=== PATIENT | female | born 1995 | race African-American/Black ===

== ENCOUNTER 2021-10-10 08:08 | Outpatient (CLI) | payer BC, MEDICAID ==
[~2021-10-10] VITALS: Ht 160 cm; Wt 110.2 kg
[~2021-10-10 08:08] MED LIST: ACHD5005 PO; AMOX500C2 PO; AMOX500T2 PO; CEPH-507 PO; CLIN300C3 PO; IBUP-1773 PO; NAPR-915 PO; PREN-148 PO; flexeril PO
[2021-10-10 09:00] VITALS: BP 116/66
[2021-10-10] MEDS ORDERED: ACETAMINOPHEN 500 MG TAB (TYLENOL) PO ONE (09:00)
[2021-10-10] MEDS ORDERED: CYCLOBENZAPRINE 10 MG (FLEXERIL) TAB PO ONE (09:00)
[2021-10-10 09:57] LABS: BILIRUBIN,URINE NEGATIVE (NEGATIVE); CLARITY,URINE CLEAR; COLOR,URINE YELLOW; GLUCOSE, URINE (UA) NEGATIVE (NEGATIVE); KETONES,URINE NEGATIVE (NEGATIVE); LEUKOCYTE ESTERASE ,URINE NEGATIVE (NEGATIVE); NITRITE,URINE NEGATIVE (NEGATIVE); PROTEIN,URINE NEGATIVE (NEGATIVE)
[2021-10-10 10:09] LABS: BACTERIA,URINE MODERATE /HPF; URINE OTHER FEW SPERM /HPF; WBC,URINE 0-2 /HPF; YEAST,URINE MODERATE /HPF
[2021-10-10] MEDS ORDERED: fluCOnazole (DIFLUCAN) 100 MG TAB PO ONE (10:30)
--- NOTE | 2021-10-11 08:28 | Physician Query-Final Dx ---
Clinic Account Progress/Dx Physician Query: Please give diagnosis Please include # weeks gestation Date of Service Oct 10, 2021 at 08:08 WILLIS,OctOct 11, 2021 08:28
== END 2021-10-10 10:57 | disposition home or self-care (01) ==
LOC: WSo 08:08 → LDRP 08:11 → WSo 10:57
PROVIDERS: ATTEND Obstetrics & Gynecology
DX: O26.899 Other specified pregnancy related conditions, unspecified trimester (principal); R25.2 Cramp and spasm; Z3A.00 Weeks of gestation of pregnancy not specified
CPT/HCPCS: 81000; 87088; 87210; 99214

== ENCOUNTER 2021-11-13 21:35 | Outpatient (CLI) | payer MEDICAID ==
[~2021-11-13] VITALS: Ht 160 cm; Wt 116.9 kg
[2021-11-13 21:56] VITALS: BP 123/64
[2021-11-13 22:02] VITALS: BP 123/65
--- NOTE | 2021-11-15 08:09 | Physician Query-Final Dx ---
WILLIS,11/15/21 0809: Clinic Account Progress/Dx Physician Query: Please give diagnosis Please include # weeks gestation Date of Service Nov 13, 2021 at 21:35 ARTHUR RM DO 11/15/21 1611: Clinic Account Progress/Dx DIAGNOSIS: Diagnosis 28 week gestation cramping WILLIS,OctNov 15, 2021 08:09 ARTHUR RM DO Nov 15, 2021 16:11
== END 2021-11-13 22:55 ==
LOC: LDRP 21:35 → WSo 21:35
PROVIDERS: ATTEND Obstetrics & Gynecology
DX: O26.893 Other specified pregnancy related conditions, third trimester (principal); Z3A.28 28 weeks gestation of pregnancy
CPT/HCPCS: 99213

== ENCOUNTER 2022-08-10 18:16 | Emergency (ER) | payer MEDICAID ==
[~2022-08-10] VITALS: Ht 160 cm; Wt 106.0 kg
[2022-08-10] MEDS ORDERED: LIDOCAINE 2% VISCOUS 15 ML UDC PO ONE (19:00)
[2022-08-10] MEDS ORDERED: FAMOTIDINE 20 MG (PEPCID) TABLET PO ONE (19:00)
[2022-08-10] MEDS ORDERED: LACTATED RINGERS 1,000 ML IV ONE (19:00)
[2022-08-10] MEDS ORDERED: PROMETHAZINE INJ 25 MG/ML (PHENERGAN) AMP IVP ONE (19:00)
[2022-08-10] MEDS ORDERED: ANTACID SUSP 30 ML UDC (MYLANTA) PO ONE (19:00)
[2022-08-10 19:36] LABS: BASOPHILS % (AUTO) 0 % (0-10); EOSINOPHILS # (AUTO) 0.2 10^3/uL (0.0-0.3); EOSINOPHILS % (AUTO) 2 % (0-10); HEMATOCRIT 36 % (35-52); HEMOGLOBIN 11.9 g/dL (11.5-16.0); LYMPHOCYTES # (AUTO) 1.6 10^3/uL (1.0-4.0); LYMPHOCYTES % (AUTO) 21 % (12-44); MEAN CORPUSCULAR HEMOGLOBIN 25 pg (25-34); MEAN CORPUSCULAR HGB CONC 33 g/dL (32-36); MEAN CORPUSCULAR VOLUME 75 fL (80-99); MEAN PLATELET VOLUME 10.5 fL (9.0-12.2); MONOCYTES # (AUTO) 0.6 10^3/uL (0.0-1.0); MONOCYTES % (AUTO) 8 % (0-12); NEUTROPHILS # (AUTO) 5.1 10^3/uL (1.8-7.8); NEUTROPHILS % (AUTO) 69 % (42-75); PLATELET COUNT 297 10^3/uL (130-400); WHITE BLOOD COUNT 7.4 10^3/uL (4.3-11.0)
[2022-08-10 19:48] LABS: ALBUMIN 3.8 GM/DL (3.2-4.5); POTASSIUM 3.6 MMOL/L (3.6-5.0)
[2022-08-10 19:50] LABS: TOTAL PROTEIN 6.9 GM/DL (6.4-8.2)
[2022-08-10 19:52] LABS: BILIRUBIN,TOTAL 0.3 MG/DL (0.1-1.0)
[2022-08-10 19:54] LABS: CREATININE SERUM 0.77 MG/DL (0.60-1.30)
[2022-08-10] MEDS ORDERED: PROM25TA14 PO (20:25)
[2022-08-10] MEDS ORDERED: FAMO-119 PO (20:25)
--- NOTE | 2022-08-10 20:25 | ED General ---
General Chief Complaint: Chest Pain Stated Complaint: CHEST PAIN, BACK PAIN, Nursing Triage Note: pt ambulatory to room. 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 states the pain feels like she fell on her back but she denies injury. 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 states she is 10 weeks , denies any vag bleeding. states she has not taken any tylenol or other meds for pain. Source of Information: Patient Exam Limitations: No Limitations History of Present Illness Date Seen by Provider: Aug 10, 2022 Time Seen by Provider: 18:21 Allergies and Home Medications Allergies Coded Allergies: No Known Drug Allergies (Unverified , 08/14/15) Patient Home Medication List Home Medication List Reviewed: Yes Famotidine (Pepcid) 20 Mg Tablet, 20 MG PO BID Prescribed by: SERINA VELAZQUEZ on 08/10/222024 Vit #76/Iron,Carb/FA (Pnv 29-1 Tablet) 1 Each Tablet, 1 EACH PO, (Reported) Entered as Reported by: AWILDA WILEY on 04/23/16 175 Promethazine HCl (Promethazine Tablet) 25 Mg Tablet, 25 MG PO Q8H PRN for NAUSEA/VOMITING Prescribed by: SERINA VELAZQUEZ on 08/10/222024 Past Rstpbye-Ygwstt-Npskhd Hx Patient Social History Tobacco Use?: No Use of E-Cig and/or Vaping dev: No Substance use?: No Alcohol Use?: No Immunizations Up To Date Influenza Vaccine Up-to-Date: No; Not Current Seasonal Allergies Seasonal Allergies: No Past Medical History Irregular Heartbeat Headaches /Migraines Last Menstrual Period: May 18, 2022 Reproductive Disorders: No Adverse Reaction/Blood Tranf: No Family Medical History Patient reports no known family medical history. No Pertinent Family Hx Physical Exam Vital Signs Vital Signs - First Documented 08/10/22 18:33 Temp 37.0 Pulse 108 Resp 24 B/P (MAP) 142/74 (96) Pulse Ox 100 Capillary Refill : Height, Weight, BMI Height: 5'4.00" Weight: 211lbs. 6.0oz. 95.883022db; 41.00 BMI Method:Stated General Appearance: No Apparent Distress, WD/WN, Obese Cardiovascular: Other (Anterior chest wall tenderness) Gastrointestinal: Normal Bowel Sounds, Soft; No Distended; Tenderness (Across the upper abdomen and most prominent in the epigastrium) Progress/Results/Core Measures Suspected Sepsis SIRS Temperature: Pulse: 108 Respiratory Rate: 24 Laboratory Tests 08/10/22 19:20: White Blood Count 7.4 Blood Pressure 142 /74 Mean: 96 Laboratory Tests 08/10/22 19:20: Creatinine 0.77, Platelet Count 297, Total Bilirubin 0.3 Results/Orders Lab Results Laboratory Tests Test 08/10/22 18:39 08/10/22 19:20 Range/Units Influenza Type A (RT-PCR) Not Detected Not Detecte Influenza Type B (RT-PCR) Not Detected Not Detecte SARS-CoV-2 RNA (RT-PCR) Not Detected Not Detecte White Blood Count 7.4 4.3-11.0 10^3/uL Red Blood Count 4.80 3.80-5.11 10^6/uL Hemoglobin 11.9 11.5-16.0 g/dL Hematocrit 36 35-52 % Mean Corpuscular Volume 75 L 80-99 fL Mean Corpuscular Hemoglobin 25 25-34 pg Mean Corpuscular Hemoglobin Concent 33 32-36 g/dL Red Cell Distribution Width 16.2 H 10.0-14.5 % Platelet Count 297 130-400 10^3/uL Mean Platelet Volume 10.5 9.0-12.2 fL Immature Granulocyte % (Auto) 0 % Neutrophils (%) (Auto) 69 42-75 % Lymphocytes (%) (Auto) 21 12-44 % Monocytes (%) (Auto) 8 0-12 % Eosinophils (%) (Auto) 2 0-10 % Basophils (%) (Auto) 0 0-10 % Neutrophils # (Auto) 5.1 1.8-7.8 10^3/uL Lymphocytes # (Auto) 1.6 1.0-4.0 10^3/uL Monocytes # (Auto) 0.6 0.0-1.0 10^3/uL Eosinophils # (Auto) 0.2 0.0-0.3 10^3/uL Basophils # (Auto) 0.0 0.0-0.1 10^3/uL Immature Granulocyte # (Auto) 0.0 0.0-0.1 10^3/uL Sodium Level 136 135-145 MMOL/L Potassium Level 3.6 3.6-5.0 MMOL/L Chloride Level 109 H 98-107 MMOL/L Carbon Dioxide Level 19 L 21-32 MMOL/L Anion Gap 8 5-14 MMOL/L Blood Urea Nitrogen 9 7-18 MG/DL Creatinine 0.77 0.60-1.30 MG/DL Estimat Glomerular Filtration Rate 110 BUN/Creatinine Ratio 12 Glucose Level 97 70-105 MG/DL Calcium Level 9.0 8.5-10.1 MG/DL Corrected Calcium 9.2 8.5-10.1 MG/DL Magnesium Level 2.0 1.6-2.4 MG/DL Total Bilirubin 0.3 0.1-1.0 MG/DL Aspartate Amino Transf (AST/SGOT) 18 5-34 U/L Alanine Aminotransferase (ALT/SGPT) 27 0-55 U/L Alkaline Phosphatase 100 40-136 U/L Total Protein 6.9 6.4-8.2 GM/DL Albumin 3.8 3.2-4.5 GM/DL Lipase 24 8-78 U/L My Orders Orders - SERINA CHAUDHRY MD Covid 19 Inhouse Test (08/10/22 18:21) Influenza A And B By Pcr (08/10/22 18:21) Ekg Tracing (08/10/22 18:36) Lidocaine 2% Viscous 15 Ml (Xylocaine Vi (08/10/22 19:00) Antacid Suspension (Mylanta Suspension (08/10/22 19:00) Famotidine Tablet (Pepcid Tablet) (08/10/22 19:00) Cbc With Automated Diff (08/10/22 19:00) Comprehensive Metabolic Panel (08/10/22 19:00) Lipase (08/10/22 19:00) Magnesium (08/10/22 19:00) Ed Iv/Invasive Line Start (08/10/22 19:00) Lactated Ringers (Lr 1000 Ml Iv Solution (08/10/22 19:00) Promethazine Injection (Phenergan Injec (08/10/22 19:00) Medications Given in ED Current Medications Medications Dose Ordered Sig/Rosalio Route Start Time Stop Time Status Last Admin Dose Admin Al Hydrox/Mg Hydrox/Simethicone 30 ml ONCE ONCE PO 08/10/22 19:00 08/10/22 19:01 DC 08/10/22 20:10 30 ML Famotidine 20 mg ONCE ONCE PO 08/10/22 19:00 08/10/22 19:01 DC 08/10/22 20:09 20 MG Lactated Ringer's 1,000 ml @ 0 mls/hr Q0M ONCE IV 08/10/22 19:00 08/10/22 19:01 DC 08/10/22 19:15 999 MLS/HR Lidocaine HCl 15 ml ONCE ONCE PO 08/10/22 19:00 08/10/22 19:01 DC 08/10/22 20:10 15 ML Promethazine HCl 25 mg ONCE ONCE IVP 08/10/22 19:00 08/10/22 19:01 DC 08/10/22 19:15 25 MG Vital Signs/I&O 08/10/22 08/10/22 18:33 21:05 Temp 37.0 37.0 Pulse 108 91 Resp 24 16 B/P (MAP) 142/74 (96) 123/76 Pulse Ox 100 100 Capillary Refill : Blood Pressure Mean: 96 ECG Initial ECG Impression Date: Aug 10, 2022 Initial ECG Impression Time: 18:44 Initial ECG Rate: 91 Initial ECG Rhythm: Normal Sinus Initial ECG Impression: Normal Comment Sinus rhythm with no ST elevation or depression. No abnormal intervals or axis deviation. Departure Impression Primary Impression: Nausea vomiting and diarrhea Additional Impressions: Upper abdominal pain Atypical chest pain Qualified Codes: Z3A.10 - 10 weeks gestation of Disposition: 01 HOME, SELF-CARE Condition: Improved Departure-Patient Inst. Decision time for Depature: 20:22 Referrals: MERLY REED DO (PCP/Family) Primary Care Physician Patient Instructions: Abdominal Pain, Adult ED, Diarrhea in Adolescents and Adults, Nausea and Vomiting, Adult Add. Discharge Instructions: Adhere to a noncarbonated clear liquid diet this evening. If you are feeling better in the morning, gradually advance your diet with small quantities of bland food as tolerated. Avoid dairy products, fatty foods, and greasy foods until your diarrhea has been resolved for at least 48 hours. Use promethazine (Phenergan) as prescribed for nausea or vomiting. This medication may make you drowsy. You should not drive, operate machinery, or make important decisions while on this medication. Take an antacid medication such as the Pepcid (famotidine) prescribed for at least the next 1 to 2 weeks. Then discussed with Dr. MILIAN at your follow-up appointment. For discomfort you may take Tylenol (acetaminophen) up to 1000 mg every 6 hours as needed. For heartburn or pain in your upper abdomen, you may also take Tums per package instructions. Return to the emergency room if you have worsening symptoms despite following these instructions. All discharge instructions reviewed with patient and/or family. Voiced understanding. Scripts Promethazine HCl (Promethazine Tablet) 25 Mg Tablet 25 MG PO Q8H PRN for NAUSEA/VOMITING, #10 TAB Prov: SERINA CHAUDHRY MD 08/10/22 Famotidine (Pepcid) 20 Mg Tablet 20 MG PO BID, #30 TAB Prov: SERINA CHAUDHRY MD 08/10/22 Copy Copies To 1: JULIAN MILIAN MD, JOSHUA T MD Aug 10, 2022 20:25
[2022-08-10 21:05] VITALS: BP 123/76
== END 2022-08-10 21:05 ==
LOC: EDUNIT# 18:16 → ER 18:18
DX: O26.891 Other specified pregnancy related conditions, first trimester (principal); R07.89 Other chest pain; R10.13 Epigastric pain; R11.0 Nausea; O21.9 Vomiting of pregnancy, unspecified; O99.611 Diseases of the digestive system complicating pregnancy, first trimester; R19.7 Diarrhea, unspecified; Z3A.10 10 weeks gestation of pregnancy; Z20.822 Contact with and (suspected) exposure to COVID-19; Z28.310 Unvaccinated for COVID-19
CPT/HCPCS: 36415; 80053; 83690; 83735; 85025; 87636; 93005

== ENCOUNTER → 2022-10-17 | Outpatient (CLI) | payer MEDICAID ==
[~2022-10-17] MED LIST changes: +FAMO-119 PO; +PROM25TA14 PO
--- NOTE | 2022-10-17 17:44 | Diagnostic Imaging Report ---
INDICATION: , routine care, anatomic survey. TECHNIQUE: Multiple real-time grayscale images were obtained over the gravid uterus. COMPARISON: None. FINDINGS: There is a single live intrauterine gestation in cephalic presentation. The amniotic fluid index measures 17.8 cm. The heart rate measures 146 BPM. The placenta is anterior without evidence of previa. The cervix is measured at 5.3 cm. There is no funneling seen. The upper and lower spine are seen. The right and left ventricular outflow tracts are seen. The stomach is seen. The heart is suboptimally visualized. The lateral ventricles are seen. The cerebellum and cisterna magna are seen. The kidneys are seen. The bladder is seen. Two umbilical arteries are seen, consistent with a three-vessel cord. The cord insertion is seen. Biometrical measurements are as follows: Biparietal 4.48 cm, age 19 weeks 4 days. Head circumference 17.61 cm, age 20 weeks 1 days. Abdominal circumference 15.53 cm, age 20 weeks 5 days. Femur length 3.19 cm, age 20 weeks 0 days. Sonographic estimate age: 0[birth year]/2023 weeks 20 days. Sonographic estimated date of delivery: 1. Estimated Weight: 344 gm (+/- 51 gm). LMP percentile: 71%. heart rate: 146 beats per minute. number: 1 of 1. IMPRESSION: 1. Single live intrauterine gestation measuring at 20 weeks and 1 day which is within range of the clinical dates. 2. No abnormalities seen on anatomic survey. The four-chamber heart is suboptimally visualized. Dictated by: Dictated on workstation # [id number]
== END ==
LOC: RAD 14:36
PROVIDERS: ATTEND Obstetrics & Gynecology
DX: Z34.82 Encounter for supervision of other normal pregnancy, second trimester (principal); Z3A.20 20 weeks gestation of pregnancy
CPT/HCPCS: 76805